=== PATIENT | female | born 1960 | race Caucasian/White ===

== ENCOUNTER → 2017-10-02 | Outpatient (CLI) | payer BC ==
[~2017-10-02] MED LIST: CALCIUM-MAGNES1 EACH PO; LEGATRIN PM PO; MECLIZINE HCL25 MG PO; METOPROLOL SUC100 MG PO; NERVE TONIC PO; OSTEO BI-FLEX1 EAC2 PO; PREMARIN0.625 MG PO; SERTRALINE HCL100 MG PO; TYLENOL PM PO
--- NOTE | 2017-10-02 11:56 | Diagnostic Imaging Report ---
PROCEDURE:KNEE LEFT THREE VIEWS COMPARISON:None. INDICATIONS:KNEE PAIN FINDINGS: There are no fractures, dislocations, lytic or blastic lesions. The bones are well-mineralized. The soft-tissues are unremarkable. CONCLUSION: No acute radiographic abnormality. Dictated by: Yo Walls M.D. on 10/02/2017 at 11:57 Electronically approved by: Yo Walls M.D. on 10/02/2017 at 11:57
--- NOTE | 2017-10-02 11:57 | Diagnostic Imaging Report ---
PROCEDURE:X-RAY RIGHT SHOULDER, COMPLETE COMPARISON:None. INDICATIONS:SHOULDER PAIN FINDINGS: There are no fractures, dislocations, lytic or blastic lesions. The bones are well-mineralized. The soft-tissues are unremarkable. CONCLUSION: No acute radiographic abnormality. Dictated by: Yo Walls M.D. on 10/02/2017 at 11:58 Electronically approved by: Yo Walls M.D. on 10/02/2017 at 11:58
--- NOTE | 2017-10-02 11:59 | Diagnostic Imaging Report ---
PROCEDURE:C-SPINE COMPLETE COMPARISON:None. INDICATIONS:NECK PAIN FINDINGS: The lateral view is visualized from the skull base to C6. The vertebral bodies are well-aligned. There are no fractures, lytic or blastic lesions. Degenerative changes are evidenced by osteophytosis at multiple levels. The disc-space heights are well-maintained. The C1/C2-odontoid interval is normal. The pre-vertebral soft tissues are normal. CONCLUSION: No acute radiographic abnormality. Dictated by: Yo Walls M.D. on 10/02/2017 at 11:59 Electronically approved by: Yo Walls M.D. on 10/02/2017 at 11:59
== END ==
LOC: RAD 09:44
PROVIDERS: ATTEND Family Medicine
DX: M54.2 Cervicalgia (principal); M25.511 Pain in right shoulder; M25.562 Pain in left knee
CPT/HCPCS: 72050

== ENCOUNTER → 2018-02-06 | Outpatient (CLI) | payer BC ==
--- NOTE | 2018-02-06 17:44 | Diagnostic Imaging Report ---
Exam: Head CT without contrast History: Trauma Comparison studies: None Technique: Axial images were obtained from the skull base to the vertex. Coronal and sagittal images reconstructed from the axial data. Radiation dose: Total DLP: 832 mGy*cm. Estimated effective dose: DLP x 0.015 Intravenous contrast: None Findings: Scalp: No abnormalities. Bones: No fractures, blastic or lytic lesions. Brain sulci: Appropriate for age. Ventricles: Normal in size and configuration. No hydrocephalus. Extra-axial spaces: No masses, no fluid collection. Parenchyma: No abnormal densities. No masses, hemorrhage, acute or chronic vascular insults. Sellar/suprasellar region: No abnormalities. Craniocervical junction: Patent foramen magnum. No Chiari one malformation. Incidental findings: Subtle atherosclerotic calcifications in in the carotid siphons. IMPRESSION: No abnormalities. Signed by: Dr. Marcos Santoyo M.D. on 02/06/2018 5:40 PM
--- NOTE | 2018-02-06 18:22 | Diagnostic Imaging Report ---
Left complete knee. CPT CODE: 76247. INDICATION: Fall several days ago, pain COMPARISON: Knee x-rays 10/02/2017 FINDINGS: There are several artifacts on the cassette. No evidence of acute fracture or dislocation. There is mild lateral and mild to moderate medial compartment narrowing with osteophytosis and prominence of the tibial spines. Moderate patellofemoral compartment narrowing is present. No progression compared to previous exam. Small joint effusion. IMPRESSION: Tricompartmental osteoarthritis, most severe in the patellofemoral compartment, with small joint effusion. No acute fracture. Signed by: Dr. Ariana Lucero MD on 02/06/2018 6:19 PM
== END ==
LOC: CT 16:26
PROVIDERS: ATTEND Family Medicine
DX: S09.90XA Unspecified injury of head, initial encounter (principal); M25.562 Pain in left knee
CPT/HCPCS: 70450

== ENCOUNTER → 2019-01-20 | Day surgery (SDC) | payer BC ==
[~2019-01-20] MED LIST changes: +ACETAMINOPHEN 1000 MG/100 ML 100 ML IV ONE; +AZO CRANBERRY1 EACH PO; +AZO STANDARD95 MG PO; +B&O 60MG R/S 60 MG SUPP PR ONE; +CLARITIN10 M2 PO; +DEXAMETHASONE SOD PHOS INJ 4 MG/ML VIAL ONE; +FAMOTIDINE 20 MG/2 ML VIAL IV ONE; +FENTANYL CITRATE/PF 100MCG/2 ML INJ ONE; +FLUTICASONE PRO16 GM INH; +GENTAMICIN 80MG/NS 100 ML 200 ML IV ONE; +IOPAMIDOL 610MG/1ML 300 MG/ML VIAL IV ONE; +LIDOCAINE HCL 2% LOCAL INJ 5 ML SDV VIAL INJ ONE; +MAGNESIUM PO; +MELATONIN3 MG PO; +MELOXICAM7.5 MG PO; +MIDAZOLAM HCL 2 MG/2 ML VIAL ONE; +NITROFURANTOIN100 MG PO; +ONDANSETRON HCL INJ 2MG/ML 2ML 2 MG/ML VIAL ONE; +POTASSIUM99 M1 PO; +PROPOFOL IV EMULSION 10 MG/ML 20 ML VIAL ONE; +SCOPOLAMINE 1.5 MG PATCH ONE; +SEVOFLURANE INHAL SOLN 250 ML PEN BTL ONE; +TURMERIC1 GM PO; +VITAMIN C1000 MG PO; +VITAMIN E400 UNI1 PO
--- OUTSIDE RECORDS SUMMARY | 2019-01-20 08:36 | XMS REPORT ---
Author Author Admin, [facility] [employer] Address [address] [address] Phone Allergies, Adverse Reactions, Alerts Allergy Name Reaction Description Start Date Severity Status Provider SULFA unknown Moderate Active Filippo Bryant MD ASPIRIN Mild Active Filippo Bryant MD DILAUDID Hives Moderate Active Filippo Bryant MD CODEINE insomnia Moderate Active Filippo Bryant MD LATEX [place]helps Mild Active Filippo Bryant MD Conditions or Problems Problem Name Problem Code Onset Date Status Entry Date Provider Comment Standard Description Annotate Annual gynaecological oncologist exam V72.3 Active Filippo Bryant MD Special investigations and examinations - Gynecological examination Cervix, screening for malignant neoplasm V76.2 Active Filippo Bryant MD Screening for malignant neoplasms of the cervix Mammogram not high risk screening V76.12 Active Filippo Bryant MD Other screening mammogram Menopausal syndrome 627.2 Active Filippo Bryant MD Symptomatic menopausal or female climacteric states Screening, vaginal cancer V76.47 Active Filippo Bryant MD Screening for malignant neoplasms of the vagina Medication List Medication Instructions Start Date Stop Date Generic Name NDC Status Provider Patient Instruction PREMARIN 0.625 MG ORAL TABLET 1 pill daily po ESTROGENS CONJUGATED 95391972460 Active Filippo Bryant MD Active FLUTICASONE PROPIONATE 50 MCG/ACT NASAL SUSPENSION one spray as needed FLUTICASONE PROPIONATE 04736665103 Active Filippo Bryant MD Active MECLIZINE HCL 25 MG ORAL TABLET one tablet three times a day MECLIZINE HCL 18407270643 Active Filippo Bryant MD Active METOPROLOL SUCCINATE ER 100 MG ORAL TABLET EXTENDED RELEASE 24 HOUR one tablet once a day METOPROLOL SUCCINATE 63254776474 Active Filippo Bryant MD Active SERTRALINE HCL 100 MG ORAL TABLET 1.5 tablets once a day SERTRALINE HCL 62711721825 Active Filippo Bryant MD Active PREMARIN 0.625 MG ORAL TABLET 1 pill daily po PREMARIN 0.625 MG ORAL TABLET ESTROGENS CONJUGATED Inactive PREMARIN 0.625 MG ORAL TABLET one tablet once a day PREMARIN 0.625 MG ORAL TABLET ESTROGENS CONJUGATED Inactive PREMARIN 0.625 MG ORAL TABLET 1 pill daily po ESTROGENS CONJUGATED 76516625325 No Longer Active Filippo Bryant MD Active PREMARIN 0.625 MG ORAL TABLET one tablet once a day ESTROGENS CONJUGATED 40687258450 No Longer Active Filippo Bryant MD Active Procedures Code Procedure Name Date Entry Date Standard Description CPT-82596 Est Patient Well Exam (40 - 64 Yrs) - 24507 14:57:25 CDT CPT-20797 New Patient Well Exam (40 - 64 Yrs) - 64156 09:06:04 CDT
--- OUTSIDE RECORDS SUMMARY | 2019-01-20 08:36 | XMS REPORT ---
Author Author [facility] Address Unknown Phone Unavailable Care Team Providers Care Print Finisher Name Role Phone CLEVELAND GASPAR Unavailable Unavailable Problems This patient has no known problems. Allergies, Adverse Reactions, Alerts This patient has no known allergies or adverse reactions. Medications This patient has no known medications. Results Test Description Test Time Test Comments Text Results Atomic Results Result Comments KNEE LEFT THREE VIEWS 2018-02-06 18:16:00 [facility] [address] [address] Patient Name: MICHELLE JARQUIN MR #: [id number] : 1960 Age/Sex: 57/F Req #: [id number] Adm Physician: Ordered by: CHASITY KERR, CLEVELAND Lozada MD Report #: [id number] Location: [place] Room/Bed: Procedure: [id number] DX/KNEE LEFT THREE VIEWS Exam Date: Exam Time: REPORT STATUS: Signed Left complete knee. CPT CODE: 95742. INDICATION: Fall several days ago, pain COMPARISON: Knee x-rays 10/02/2017 FINDINGS: There are several artifacts on the cassette. No evidence of acute fracture or dislocation. There is mild lateral and mild to moderate medial compartment narrowing with osteophytosis and prominence of the tibial spines. Moderate patellofemoral compartment narrowing is present. No progression compared to previous exam. Small joint effusion. IMPRESSION: Tricompartmental osteoarthritis, most severe in the patellofemoral compartment, with small joint effusion. No acute fracture. Signed by: Dr. Eric Lucero MD on 02/06/2018 6:19 PM Dictated By: ERIC LUCERO MD 18 Transcribed By: JEFFRY on 02/06/181818 COPY TO: CLEVELAND GASPAR CT BRAIN WO 2018-02-06 17:37:00 [address] [address] Patient Name: MICHELLE JARQUIN MR #: [id number] : 1960 Age/Sex: 57/F Req #: [id number] Adm Physician: Ordered by: CLEVELAND GASPAR MD, MD Report #: [id number] Location: CT Room/Bed: Procedure: [id number] CT/CT BRAIN WO Exam Date: Exam Time: REPORT STATUS: Signed Exam: Head CT without contrast History: Trauma Comparison studies: None Technique: Axial images were obtained from the skull base to the vertex. Coronal and sagittal images reconstructed from the axial data. Radiation dose: Total DLP: 832 mGy*cm. Estimated effective dose: DLP x 0.015 Intravenous contrast: None Findings: Scalp: No abnormalities. Bones: No fractures, blastic or lytic lesions. Brain sulci: Appropriate for age. Ventricles: Normal in size and configuration. No hydrocephalus. Extra-axial spaces: No masses, no fluid collection. Parenchyma: No abnormal densities. No masses, hemorrhage, acute or chronic vascular insults. Sellar/suprasellar region: No abnormalities. Craniocervical junction: Patent foramen magnum. No Chiari one malformation. Incidental findings: Subtle atherosclerotic calcifications in in the carotid siphons. IMPRESSION: No abnormalities. Signed by: Dr. Candy Santoyo M.D. on 02/06/2018 5:40 PM Dictated By: CANDY SANTOYO MD 39 Transcribed By: JEFFRY on 02/06/181739 COPY TO: CLEVELAND GASPAR KNEE LEFT THREE VIEWS [place] [address] Patient Name: MICHELLE JARQUIN MR #: [id number] : 1960 Age/Sex: 57/F Req #: [id number] Adm Physician: Ordered by: CLEVELAND GASPAR MD, MD Report #: [id number] Location: [facility] Room/Bed: Procedure: [id number] DX/KNEE LEFT THREE VIEWS Exam Date: 10/02/17 Exam Time: 1000 REPORT STATUS: Signed PROCEDURE: KNEE LEFT THREE VIEWS COMPARISON: None. INDICATIONS: KNEE PAIN FINDINGS: There are no fractures, dislocations, lytic or blastic lesions. The bones are well-mineralized. The soft-tissues are unremarkable. CONCLUSION: No acute radiographic abnormality. Dictated by: Adry Hein M.D. on 10/02/2017 at 11:57 Electronically approved by: Adry Hein M.D. on 10/02/2017 at 11:57 Dictated By: ADRY HEIN MD 56 Transcribed By: BRITTANY on 10/02/171156 COPY TO: CLEVELAND GASPAR SHOULDER RIGHT COMPLETE [place] [address] Patient Name: MICHELLE JARQUIN MR #: [id number] : 1960 Age/Sex: 57/F Req #: [id number] Adm Physician: Ordered by: CLEVELAND GASPAR MD, MD Report #: [id number] Location: RAD Room/Bed: Procedure: [id number] DX/SHOULDER RIGHT COMPLETE Exam Date: 10/02/17 Exam Time: 1000 REPORT STATUS: Signed PROCEDURE: X-RAY RIGHT SHOULDER, COMPLETE COMPARISON: None. INDICATIONS: SHOULDER PAIN FINDINGS: There are no fractures, dislocations, lytic or blastic lesions. The bones are well- mineralized. The soft-tissues are unremarkable. CONCLUSION: No acute radiographic abnormality. Dictated by: Adry Hein M.D. on 10/02/2017 at 11:58 Electronically approved by: Adry Hein M.D. on 10/02/2017 at 11:58 Dictated By: ADRY HEIN MD 1158 Transcribed By: BRITTANY on 10/02/17 1158 COPY TO: CLEVELAND GASPAR CERVICAL SPINE 4 OR 5 VIEWS [place] [address] Patient Name: MICHELLE JARQUIN MR #: [id number] : 1960 Age/Sex: 57/F Req #: [id number] Adm Physician: Ordered by: CLEVELAND GASPAR MD, MD Report #: [id number] Location: RAD Room/Bed: Procedure: [id number] DX/CERVICAL SPINE 4 OR 5 VIEWS Exam Date: 10/02/17 Exam Time: 1000 REPORT STATUS: Signed PROCEDURE: C-SPINE COMPLETE COMPARISON: None. INDICATIONS: NECK PAIN FINDINGS: The lateral view is visualized from the skull base to C6. The vertebral bodies are well-aligned. There are no fractures, lytic or blastic lesions. Degenerative changes are evidenced by osteophytosis at multiple levels. The disc-space heights are well-maintained. The C1/C2-odontoid interval is normal. The pre-vertebral soft tissues are normal. CONCLUSION: No acute radiographic abnormality. Dictated by: Adry Hein M.D. on 10/02/2017 at 11:59 Electronically approved by: Adry Hein M.D. on 10/02/2017 at 11:59 Dictated By: ADRY HEIN MD 1157 Transcribed By: BRITTANY on 10/02/17 1153 COPY TO: CLEVELAND GASPAR
[2019-01-20 12:45] VITALS: BP 118/81
--- NOTE | 2019-03-19 05:04 | Operative Report ---
DATE OF PROCEDURE: 01/20/2019 SURGEON: Shadi Lares MD PREOPERATIVE DIAGNOSES: 1. Interstitial cystitis. 2. Urinary tract infection. 3. Gross hematuria. 4. Microscopic hematuria. 5. Mixed type urinary incontinence. POSTOPERATIVE DIAGNOSES: 1. Interstitial cystitis. 2. Urinary tract infection. 3. Gross hematuria. 4. Microscopic hematuria. 5. Mixed type urinary incontinence. 6. Grade 2 cystocele. 7. Grade 2-3 rectocele. 8. Urethral hypermobility. 9. Atrophic (senile) vaginitis. OPERATION PERFORMED: 1. Cystourethroscopy with bilateral ureteral catheterization and retrograde ureteropyelography (separate procedure performed for hematuria and urinary tract infections). 2. Interpretation of retrograde ureteropyelography. 3. Supervision of fluoroscopy, no radiologist present. 4. Cystourethroscopy with hydrodistention (separate procedure performed to diagnose and hopefully treat the patient's interstitial cystitis). 5. Pelvic examination under anesthesia. ANESTHESIA: General. COMPLICATIONS: None. CLINICAL SUMMARY: Brandie Novak is a 58-year-old woman with the above preoperative diagnoses. She is brought for the above procedure. She is aware of the risks of bleeding, infection, injury to adjacent structures, need for additional procedures and elected to proceed. OPERATIVE PROCEDURE IN DETAIL: Informed consent was verified. Brandie Novak was properly identified, taken to the operating room, placed on the cystoscopy table in supine position. Anesthesia was uneventfully begun. The cystoscope sheath with obturator in place was atraumatically inserted. The patient's urethra and bladder were drained. Panendoscopy of the bladder revealed no suspicious mucosal lesions, no tumors, no stones, and no diverticula. Trabeculations were noted. Normally positioned and configured ureteral orifices were identified. An 8-Khmer catheter was used to cannulate each ureter and retrograde ureteropyelogram was performed. Interpretation of retrograde ureteropyelography contrast was instilled in retrograde fashion bilaterally. There were no tumors, no stones, and no diverticula. Unobstructed drainage was observed bilaterally fluoroscopically. There was some tortuosity of the patient's proximal right ureter and there was ptosis over the right kidney. Hydrodistention of the bladder was carried out to exactly 80 cm of water height and for exactly 2 minutes by the clock. This revealed bladder capacity under anesthesia of only 650 mL. Panendoscopy of the bladder following this revealed erythema throughout the bladder and glomerulations were also noted. The patient's bladder was then drained. The cystoscope was withdrawn. Pelvic examination under anesthesia revealed a grade 2 cystocele, grade 2-3 rectocele. There was urethral hypermobility and atrophic (senile) vaginitis. There were no suspicious mucosal lesions that were obvious. There were no abnormal palpable pelvic masses could be appreciated. The patient was then uneventfully reversed from anesthesia and taken to recovery room in stable condition. Explicit postop instructions were given. We will follow the patient up in the office. Shadi MD ANATOLY Lares/LIZA /[id number]
== END | disposition home or self-care (01) ==
LOC: OR 08:26
PROVIDERS: ATTEND Urology
DX: N30.10 Interstitial cystitis (chronic) without hematuria (principal); N39.46 Mixed incontinence; R31.0 Gross hematuria; N81.10 Cystocele, unspecified; N81.6 Rectocele; N36.41 Hypermobility of urethra; N95.2 Postmenopausal atrophic vaginitis; N32.89 Other specified disorders of bladder; N28.83 Nephroptosis; N13.8 Other obstructive and reflux uropathy; G47.33 Obstructive sleep apnea (adult) (pediatric); I10 Essential (primary) hypertension; J45.909 Unspecified asthma, uncomplicated; K58.9 Irritable bowel syndrome, unspecified; E66.9 Obesity, unspecified; M19.90 Unspecified osteoarthritis, unspecified site; Z88.2 Allergy status to sulfonamides; Z88.6 Allergy status to analgesic agent; Z88.1 Allergy status to other antibiotic agents; Z91.040 Latex allergy status; Z01.810 Encounter for preprocedural cardiovascular examination
CPT/HCPCS: 52260; 74420; 93005; C1758; J0131; J1100; J1580; J2001; J2250; J2405; J2704; J3010; Q9967

== ENCOUNTER → 2019-03-30 | Outpatient (CLI) | payer BC ==
[~2019-03-30] MED LIST changes: -ACETAMINOPHEN 1000 MG/100 ML 100 ML IV ONE; -B&O 60MG R/S 60 MG SUPP PR ONE; -DEXAMETHASONE SOD PHOS INJ 4 MG/ML VIAL ONE; -FAMOTIDINE 20 MG/2 ML VIAL IV ONE; -FENTANYL CITRATE/PF 100MCG/2 ML INJ ONE; -GENTAMICIN 80MG/NS 100 ML 200 ML IV ONE; -IOPAMIDOL 610MG/1ML 300 MG/ML VIAL IV ONE; -LIDOCAINE HCL 2% LOCAL INJ 5 ML SDV VIAL INJ ONE; -MIDAZOLAM HCL 2 MG/2 ML VIAL ONE; -ONDANSETRON HCL INJ 2MG/ML 2ML 2 MG/ML VIAL ONE; -PROPOFOL IV EMULSION 10 MG/ML 20 ML VIAL ONE; -SCOPOLAMINE 1.5 MG PATCH ONE; -SEVOFLURANE INHAL SOLN 250 ML PEN BTL ONE
== END ==
LOC: MAMMO 08:33
PROVIDERS: ATTEND Obstetrics & Gynecology
DX: Z12.31 Encounter for screening mammogram for malignant neoplasm of breast (principal)
CPT/HCPCS: 77067

== ENCOUNTER → 2021-04-11 | Outpatient (CLI) | payer BC ==
[~2021-04-11] MED LIST changes: +PHENAZOPYRIDINE PEG; +PROBIOTIC250 MG PO; +ZINC SULFATE220 M1 PO
== END ==
LOC: MAMMO 08:33
PROVIDERS: ATTEND Family Medicine
DX: Z12.31 Encounter for screening mammogram for malignant neoplasm of breast (principal)
CPT/HCPCS: 77067